=== PATIENT | female | born 1940 | race Caucasian/White ===

== ENCOUNTER 2023-06-25 12:48 | Inpatient (IN) ==
[2023-06-25] MEDS ORDERED: IOPAMIDOL 100 ML BOTTLE IV ONE (12:49)
[2023-06-25 14:52] LABS: Basophils # (Auto) 0.02 K/mcL (0.00-0.30); Basophils % (Auto) 0.2 % (0.0-2.0); Eosinophils # (Auto) 0.01 K/mcL (0.00-0.70); Eosinophils % (Auto) 0.1 % (0.0-7.0); Hematocrit 42.6 % (34.1-44.9); Hemoglobin 13.5 g/dL (11.2-15.7); Lymphocytes # (Auto) 0.58 K/mcL (1.50-4.80); Lymphocytes % (Auto) 6.3 % (15.5-49.0); Mean Cell Volume 93.2 fL (80.0-100.0); Mean Corpuscular HGB Conc 31.7 g/dL (31.0-36.0); Mean Platelet Volume 10.7 fL (8.8-12.5); Monocytes # (Auto) 0.37 K/mcL (0.10-0.90); Platelet Count 213 K/mcL (140-440); RBC 4.57 M/mcL (3.59-5.38); Red Cell Distribution Width 12.9 % (11.5-14.5); WBC 9.2 K/mcL (4.5-11.0)
[2023-06-25 15:05] LABS: ALT/SGPT 11 U/L (<40); AST/SGOT 34 U/L (<32); Albumin 3.9 gm/dL (3.2-5.2); Albumin/Globulin Ratio 1.4 (1.0-2.3); Alkaline Phosphatase 76 U/L (39-117); Bilirubin,Total 1.4 mg/dL (0.1-1.0); Blood Urea Nitrogen 40 mg/dL (8-23); Calcium 8.8 mg/dL (8.6-10.4); Carbon Dioxide 25 mmol/L (22-30); Chloride 96 mmol/L (96-108); Globulin 2.7 gm/dL (2.2-3.7); Glomerular Filtration Rate 46; Glucose 154 mg/dL (70-105)
[2023-06-25] MEDS: LACTATED RINGERS 1,000 ML IV ONE (15:46)
[2023-06-25] MEDS: PIPERACILLIN SODIUM/TAZOBACTAM 3.375 GM in DEXTROSE 5% IN WATER 50 ML IV ONE (17:41)
[2023-06-25] MEDS ORDERED: DEXTROSE 31 GM ORAL.SUSP PO PRN (22:38)
[2023-06-25] MEDS ORDERED: DEXTROSE 50% 50 ML VIAL IV PRN (22:38)
[2023-06-25] MEDS: 0.9 % SODIUM CHLORIDE 10 ML SYRINGE IV SCH (23:32)
[2023-06-25] MEDS: INSULIN LISPRO 1 UNIT/0.01 ML UNIT SQ SCH (23:32)
[2023-06-25] MEDS: PANTOPRAZOLE 40 MG VIAL IV SCH (23:44)
[2023-06-25] MEDS: PANTOPRAZOLE 40 MG VIAL IV ONE (23:52)
[2023-06-25] MEDS: LOPERAMIDE 2 MG CAPSULE PO PRN (23:52)
[2023-06-25] MEDS: LOPERAMIDE 2 MG CAPSULE PO ONE (23:56)
[2023-06-26] MEDS: LOPERAMIDE 2 MG CAPSULE PO ONE (00:01)
[2023-06-26] MEDS: PIPERACILLIN SODIUM/TAZOBACTAM 3.375 GM in DEXTROSE 5% IN WATER 100 ML IV SCH ×2 (03:21→14:26)
[2023-06-26 07:19] LABS: Basophils # (Auto) 0.02 K/mcL (0.00-0.30); Basophils % (Auto) 0.3 % (0.0-2.0); Eosinophils # (Auto) 0.05 K/mcL (0.00-0.70); Eosinophils % (Auto) 0.6 % (0.0-7.0); Hematocrit 38.8 % (34.1-44.9); Lymphocytes # (Auto) 1.64 K/mcL (1.50-4.80); Lymphocytes % (Auto) 21.1 % (15.5-49.0); Mean Cell Volume 95.6 fL (80.0-100.0); Mean Corpuscular HGB Conc 30.9 g/dL (31.0-36.0); Mean Platelet Volume 10.8 fL (8.8-12.5); Monocytes # (Auto) 0.63 K/mcL (0.10-0.90); Monocytes % (Auto) 8.1 % (1.0-12.0); Neutrophils % (Auto) 69.5 % (38.0-78.0); Platelet Count 189 K/mcL (140-440); RBC 4.06 M/mcL (3.59-5.38); Red Cell Distribution Width 13.1 % (11.5-14.5); WBC 7.8 K/mcL (4.5-11.0)
[2023-06-26 07:34] LABS: ALT/SGPT 10 U/L (<40); AST/SGOT 30 U/L (<32); Albumin 3.3 gm/dL (3.2-5.2); Albumin/Globulin Ratio 1.4 (1.0-2.3); Alkaline Phosphatase 63 U/L (39-117); Blood Urea Nitrogen 34 mg/dL (8-23); Calcium 8.3 mg/dL (8.6-10.4); Carbon Dioxide 26 mmol/L (22-30); Chloride 98 mmol/L (96-108); Globulin 2.4 gm/dL (2.2-3.7); Glomerular Filtration Rate 41; Glucose 127 mg/dL (70-105)
[2023-06-26] MEDS: LACTATED RINGERS 1,000 ML IV SCH (09:29)
[2023-06-26] MEDS: POTASSIUM CHLORIDE 20 MEQ/15 ML ML PO SCH (09:29)
[2023-06-27] MEDS: ONDANSETRON 4 MG/2 ML VIAL IV PRN (07:24)
[2023-06-27 07:33] LABS: Blood Urea Nitrogen 23 mg/dL (8-23); Calcium 8.8 mg/dL (8.6-10.4); Carbon Dioxide 28 mmol/L (22-30); Chloride 99 mmol/L (96-108); Glomerular Filtration Rate 38; Glucose 151 mg/dL (70-105); Phosphorous 3.1 mg/dL (2.5-4.5)
[2023-06-27] MEDS: 0.9 % SODIUM CHLORIDE 1,000 ML IV SCH (10:24)
[2023-06-27] MEDS: POTASSIUM CHLORIDE 40 MEQ in DEXTROSE 5% IN WATER 500 ML IV SCH (10:56)
[2023-06-27] MEDS: POTASSIUM CHLORIDE 20 MEQ TABLET PO SCH (11:37)
[2023-06-27] MEDS ORDERED: CARBOXYMETHYLCELLULOSE SODIUM 1 EACH DROPER.GEL OP PRN (14:30)
[2023-06-27] MEDS ORDERED: ACETAMINOPHEN 325 MG TABLET PO SCH (14:30)
[2023-06-27] MEDS ORDERED: LEVALBUTEROL TARTRATE INH PRN (14:31)
[2023-06-27] MEDS: ATORVASTATIN 10 MG TABLET PO SCH (21:23)
[2023-06-27] MEDS: HYDROmorphone 0.5 MG/0.5 ML SYRINGE IV PRN (21:51)
[2023-06-27] MEDS: METOCLOPRAMIDE 10 MG/2 ML VIAL IV PRN (21:52)
[2023-06-28 06:28] LABS: Blood Urea Nitrogen 16 mg/dL (8-23); Carbon Dioxide 21 mmol/L (22-30); Glomerular Filtration Rate 34
[2023-06-28 07:09] LABS: Albumin 3.3 gm/dL (3.2-5.2); Calcium 8.8 mg/dL (8.6-10.4); Chloride 104 mmol/L (96-108); Glucose 172 mg/dL (70-105); Phosphorous 3.7 mg/dL (2.5-4.5)
[2023-06-28 08:13] LABS: Basophils # (Auto) 0.06 K/mcL (0.00-0.30); Basophils % (Auto) 0.5 % (0.0-2.0); Eosinophils % (Auto) 0.8 % (0.0-7.0); Hematocrit 47.4 % (34.1-44.9); Hemoglobin 14.9 g/dL (11.2-15.7); Lymphocytes # (Auto) 1.63 K/mcL (1.50-4.80); Lymphocytes % (Auto) 13.4 % (15.5-49.0); Mean Cell Volume 93.7 fL (80.0-100.0); Mean Corpuscular HGB Conc 31.4 g/dL (31.0-36.0); Mean Platelet Volume 11.7 fL (8.8-12.5); Monocytes # (Auto) 0.44 K/mcL (0.10-0.90); Monocytes % (Auto) 3.6 % (1.0-12.0); Neutrophils % (Auto) 80.8 % (38.0-78.0); Platelet Count 160 K/mcL (140-440); RBC 5.06 M/mcL (3.59-5.38); Red Cell Distribution Width 13.5 % (11.5-14.5); WBC 12.2 K/mcL (4.5-11.0)
[2023-06-28] MEDS: ESCITALOPRAM 20 MG TABLET PO SCH (08:29)
[2023-06-28] MEDS: ESTRADIOL 1 MG TABLET PO SCH (08:29)
[2023-06-28] MEDS: MOMETASONE NAS SPRAY 1 SPRAY BOTTLE NAS SCH (08:34)
[2023-06-28] MEDS: Fluticasone Furoate-Vilanterol [Breo Ellipta] 100 INH SCH (08:34)
[2023-06-29 06:01] LABS: Hematocrit 42.1 % (34.1-44.9); Hemoglobin 12.8 g/dL (11.2-15.7); Mean Cell Volume 95.7 fL (80.0-100.0); Mean Corpuscular HGB Conc 30.4 g/dL (31.0-36.0); Platelet Count 216 K/mcL (140-440); Red Cell Distribution Width 13.4 % (11.5-14.5); WBC 11.2 K/mcL (4.5-11.0)
[2023-06-29 06:16] LABS: Blood Urea Nitrogen 15 mg/dL (8-23); Calcium 8.1 mg/dL (8.6-10.4); Carbon Dioxide 22 mmol/L (22-30); Chloride 106 mmol/L (96-108); Glomerular Filtration Rate 38; Glucose 149 mg/dL (70-105)
[2023-06-29] MEDS: ENOXAPARIN 40 MG/0.4 ML SYRINGE SQ SCH (08:51)
[2023-06-30] MEDS: ACETAMINOPHEN 1,000 MG/100 ML BAG IV PRN (01:12)
[2023-06-30 08:13] LABS: Appearance,Urine Clear (Clear); Bacteria,Urine Rare /hpf (0); Bilirubin,Urine Small mg/dL (Negative); Color,Urine Yellow; Culture Indicated,Urine No; Glucose,Urine (UA) Negative (Negative); Ketones,Urine 15 mg/dL (Negative); Leukocyte Esterase,Urine Trace /uL (Negative); Nitrate,Urine Negative (Negative); PH,Urine 5.5 (5.0-9.0); Protein,Urine 30 mg/dL (Negative); Specific Gravity,Urine >= 1.030 (1.000-1.035); Urine Blood Negative ery/mcL (Negative); Urine RBC 1 /hpf (0-3); Urine Squamous Epithelial Cell 5 /hpf (0-4); Urine WBC 6 /hpf (0-4); Urobilinogen,Urine Normal
[2023-06-30] MEDS ORDERED: IOPAMIDOL 100 ML BOTTLE IV ONE (09:15)
[2023-06-30] MEDS: METOCLOPRAMIDE 10 MG/2 ML VIAL IV SCH (13:57)
[2023-06-30] MEDS: amLODIPine 5 MG TABLET PO SCH (16:06)
[2023-07-01 06:28] LABS: Erythrocyte Sedimentation Rate 7 mm/hr (0-30)
[2023-07-01 06:30] LABS: Basophils # (Auto) 0.04 K/mcL (0.00-0.30); Basophils % (Auto) 0.4 % (0.0-2.0); Eosinophils # (Auto) 0.44 K/mcL (0.00-0.70); Eosinophils % (Auto) 4.9 % (0.0-7.0); Hematocrit 41.2 % (34.1-44.9); Hemoglobin 12.8 g/dL (11.2-15.7); Lymphocytes # (Auto) 0.91 K/mcL (1.50-4.80); Lymphocytes % (Auto) 10.2 % (15.5-49.0); Mean Cell Volume 93.8 fL (80.0-100.0); Mean Corpuscular HGB Conc 31.1 g/dL (31.0-36.0); Monocytes # (Auto) 0.42 K/mcL (0.10-0.90); Monocytes % (Auto) 4.7 % (1.0-12.0); Neutrophils % (Auto) 79.6 % (38.0-78.0); Platelet Count 213 K/mcL (140-440); RBC 4.39 M/mcL (3.59-5.38); Red Cell Distribution Width 13.4 % (11.5-14.5)
[2023-07-01 07:18] LABS: ALT/SGPT 14 U/L (<40); AST/SGOT 34 U/L (<32); Albumin/Globulin Ratio 1.2 (1.0-2.3); Alkaline Phosphatase 56 U/L (39-117); Bilirubin,Direct 0.2 mg/dL (<0.3); Bilirubin,Total 0.5 mg/dL (0.1-1.0); Blood Urea Nitrogen 14 mg/dL (8-23); Carbon Dioxide 20 mmol/L (22-30); Chloride 106 mmol/L (96-108); Globulin 2.5 gm/dL (2.2-3.7); Glomerular Filtration Rate 46; Glucose 90 mg/dL (70-105); Lactate Dehydrogenase 219 U/L (135-225); Phosphorous 2.7 mg/dL (2.5-4.5); Triglycerides 104 mg/dL (<150); Uric Acid 4.2 mg/dL (2.5-8.0)
[2023-07-01] MEDS: POTASSIUM CHLORIDE 40 MEQ in DEXTROSE 5% IN WATER 500 ML IV ONE (09:32)
[2023-07-01] MEDS ORDERED: DIATRIZOATE MEGLU/DIATRIZO SOD 120ML BOTTLE PO ONE (11:44)
[2023-07-01] MEDS ORDERED: ENALAPRILAT 1.25 MG/ML VIAL IV PRN (16:09)
[2023-07-01] MEDS: PYRIDOSTIGMINE BROMIDE 10 MG/2 ML AMPUL IV SCH (17:51)
[2023-07-01] MEDS: METOCLOPRAMIDE 10 MG/2 ML VIAL IV SCH (17:54)
[2023-07-02 07:40] LABS: ALT/SGPT 16 U/L (<40); AST/SGOT 35 U/L (<32); Albumin 3.4 gm/dL (3.2-5.2); Albumin/Globulin Ratio 1.2 (1.0-2.3); Alkaline Phosphatase 61 U/L (39-117); Bilirubin,Direct < 0.2 mg/dL (0-0.3); Bilirubin,Total 0.4 mg/dL (0.1-1.0); Blood Urea Nitrogen 12 mg/dL (8-23); Calcium 8.4 mg/dL (8.6-10.4); Carbon Dioxide 17 mmol/L (22-30); Chloride 106 mmol/L (96-108); Globulin 2.8 gm/dL (2.2-3.7); Glomerular Filtration Rate 46; Glucose 149 mg/dL (70-105); Lactate Dehydrogenase 251 U/L (135-225); Phosphorous 2.6 mg/dL (2.5-4.5); Triglycerides 119 mg/dL (<150); Uric Acid 3.6 mg/dL (2.5-8.0)
[2023-07-02] MEDS: HEPARIN 5,000 UNIT/ML VIAL SQ SCH (09:24)
[2023-07-02] MEDS: DEXTROSE 5%-1/2NS W/10MEQ KCL 1,000 ML IV SCH (11:28)
[2023-07-02] MEDS: VILANTEROL INH SCH (13:51)
[2023-07-02] MEDS: FLUTICASONE INH SCH (13:51)
[2023-07-02] MEDS: UMECLIDINIUM INH SCH (13:51)
[2023-07-02] MEDS: POTASSIUM CHLORIDE 20 MEQ/10 ML VIAL IV ONE (20:33)
[2023-07-02] MEDS: POTASSIUM CHLORIDE 40 MEQ in DEXTROSE 5% IN WATER 500 ML IV ONE (20:42)
[2023-07-03 06:53] LABS: Basophils # (Auto) 0.04 K/mcL (0.00-0.30); Basophils % (Auto) 0.4 % (0.0-2.0); Eosinophils # (Auto) 0.19 K/mcL (0.00-0.70); Eosinophils % (Auto) 1.8 % (0.0-7.0); Hematocrit 42.1 % (34.1-44.9); Hemoglobin 12.3 g/dL (11.2-15.7); Lymphocytes # (Auto) 0.81 K/mcL (1.50-4.80); Lymphocytes % (Auto) 7.7 % (15.5-49.0); Mean Cell Volume 100.2 fL (80.0-100.0); Mean Corpuscular HGB Conc 29.2 g/dL (31.0-36.0); Monocytes # (Auto) 0.49 K/mcL (0.10-0.90); Monocytes % (Auto) 4.7 % (1.0-12.0); Neutrophils % (Auto) 85.1 % (38.0-78.0); Platelet Count 194 K/mcL (140-440); Red Cell Distribution Width 13.9 % (11.5-14.5); WBC 10.5 K/mcL (4.5-11.0)
[2023-07-03 07:20] LABS: Blood Urea Nitrogen 9 mg/dL (8-23); Carbon Dioxide 16 mmol/L (22-30); Chloride 110 mmol/L (96-108); Glomerular Filtration Rate 41; Glucose 166 mg/dL (70-105)
[2023-07-03] MEDS: SODIUM BICARBONATE VIAL 150 MEQ in WATER FOR INJECTION,STERILE 850 ML IV ONE (08:57)
[2023-07-03] MEDS: LOSARTAN 25 MG TABLET PO SCH (08:58)
[2023-07-03 10:05] LABS: Albumin 3.1 gm/dL (3.2-5.2)
[2023-07-03] MEDS: ALBUMIN HUMAN 12.5 GM/50 ML VIAL IV ONE (10:29)
[2023-07-03] MEDS: FUROSEMIDE 40 MG/4 ML VIAL IV ONE (11:00)
[2023-07-03] MEDS ORDERED: IOPAMIDOL 100 ML BOTTLE IV ONE (15:58)
[2023-07-04 06:26] LABS: Basophils # (Auto) 0.03 K/mcL (0.00-0.30); Basophils % (Auto) 0.1 % (0.0-2.0); Eosinophils # (Auto) 0.09 K/mcL (0.00-0.70); Eosinophils % (Auto) 0.3 % (0.0-7.0); Hematocrit 36.3 % (34.1-44.9); Hemoglobin 11.4 g/dL (11.2-15.7); Lymphocytes # (Auto) 1.07 K/mcL (1.50-4.80); Lymphocytes % (Auto) 3.7 % (15.5-49.0); Mean Cell Volume 93.6 fL (80.0-100.0); Mean Corpuscular HGB Conc 31.4 g/dL (31.0-36.0); Mean Platelet Volume 11.3 fL (8.8-12.5); Monocytes # (Auto) 0.88 K/mcL (0.10-0.90); Monocytes % (Auto) 3.1 % (1.0-12.0); Platelet Count 183 K/mcL (140-440); RBC 3.88 M/mcL (3.59-5.38); WBC 28.8 K/mcL (4.5-11.0)
[2023-07-04 06:42] LABS: ALT/SGPT 13 U/L (<40); AST/SGOT 27 U/L (<32); Albumin 2.9 gm/dL (3.2-5.2); Albumin/Globulin Ratio 1.3 (1.0-2.3); Alkaline Phosphatase 52 U/L (39-117); Bilirubin,Direct < 0.2 mg/dL (0-0.3); Bilirubin,Total 0.5 mg/dL (0.1-1.0); Blood Urea Nitrogen 7 mg/dL (8-23); Calcium 8.1 mg/dL (8.6-10.4); Carbon Dioxide 24 mmol/L (22-30); Chloride 104 mmol/L (96-108); Globulin 2.3 gm/dL (2.2-3.7); Glomerular Filtration Rate 41; Glucose 134 mg/dL (70-105); Lactate Dehydrogenase 221 U/L (135-225); Phosphorous 2.1 mg/dL (2.5-4.5); Triglycerides 71 mg/dL (<150); Uric Acid 3.9 mg/dL (2.5-8.0)
[2023-07-04] MEDS ORDERED: MOMETASONE NAS SPRAY 1 SPRAY BOTTLE NAS PRN (08:02)
[2023-07-04] MEDS: POTASSIUM CHLORIDE 40 MEQ in DEXTROSE 5% IN WATER 500 ML IV ONE (08:36)
[2023-07-04] MEDS: MAGNESIUM SULFATE 4 GM/100 ML BAG IV ONE (08:55)
[2023-07-04] MEDS ORDERED: ROCURONIUM 10 MG/ML ML IV ONE ×3 (09:26→12:40)
[2023-07-04] MEDS ORDERED: PROPOFOL 200 MG/20 ML VIAL IV ONE (09:26)
[2023-07-04] MEDS ORDERED: fentaNYL 100 MCG/2 ML VIAL ONE (09:27)
[2023-07-04] MEDS ORDERED: PHENYLephrine 1 MG/10 ML SYRINGE (ANEST) ONE (10:42)
[2023-07-04] MEDS ORDERED: SUGAMMADEX SODIUM 200 MG/2 ML VIAL IV ONE (12:47)
[2023-07-04] MEDS ORDERED: fentaNYL 100 MCG/2 ML VIAL IV PRN ×2 (12:53→16:20)
[2023-07-04] MEDS ORDERED: ONDANSETRON 4 MG/2 ML VIAL IV PRN (12:53)
[2023-07-04] MEDS ORDERED: IPRATROPIUM/ALBUTEROL 3 ML AMPUL.NEB NEB PRN (12:53)
[2023-07-04] MEDS ORDERED: HYDROmorphone 0.5 MG/0.5 ML SYRINGE IV PRN (12:53)
[2023-07-04] MEDS ORDERED: NALOXONE HCL 0.4 MG/ML VIAL IV PRN ×2 (12:53→20:25)
[2023-07-04] MEDS ORDERED: HYDROmorphone 1 MG/ML SYRINGE ONE (13:27)
[2023-07-04] MEDS: HYDROmorphone 1 MG/ML SYRINGE IV PRN (15:18)
[2023-07-04] MEDS: NALOXONE HCL 0.4 MG/ML VIAL IV ONE ×2 (16:11→17:56)
[2023-07-04] MEDS: NALOXONE HCL 0.4 MG/ML VIAL ONE (16:24)
[2023-07-04] MEDS: DEXTROSE 5%-1/2NS W/10MEQ KCL 1,000 ML IV SCH (20:36)
[2023-07-04] MEDS: 0.9 % SODIUM CHLORIDE 500 ML IV ONE (21:03)
[2023-07-04] MEDS: IPRATROPIUM/ALBUTEROL 3 ML AMPUL.NEB NEB SCH (21:08)
[2023-07-04] MEDS: ALBUMIN HUMAN 12.5 GM/50 ML VIAL IV ONE (23:28)
[2023-07-04] MEDS: 0.9 % SODIUM CHLORIDE 10 ML SYRINGE IV SCH (23:29)
[2023-07-04] MEDS: ALBUMIN HUMAN 50 ML IV ONE (23:30)
[2023-07-05] MEDS ORDERED: 0.9 % SODIUM CHLORIDE 250 ML IV SCH (02:15)
[2023-07-05] MEDS: NOREPINEPHRINE BITARTRATE 4 MG/4 ML VIAL IV ONE (02:26)
[2023-07-05] MEDS: NOREPINEPHRINE BITARTRATE 8 MG in 0.9 % SODIUM CHLORIDE 242 ML IV SCH (02:27)
[2023-07-05] MEDS: 0.9 % SODIUM CHLORIDE 250 ML IV SCH (02:28)
[2023-07-05 05:52] LABS: Basophils # (Auto) 0.01 K/mcL (0.00-0.30); Basophils % (Auto) 0 % (0.0-2.0); Eosinophils # (Auto) 0.05 K/mcL (0.00-0.70); Eosinophils % (Auto) 0.2 % (0.0-7.0); Hematocrit 39.1 % (34.1-44.9); Hemoglobin 11.9 g/dL (11.2-15.7); Lymphocytes # (Auto) 1.39 K/mcL (1.50-4.80); Lymphocytes % (Auto) 4.5 % (15.5-49.0); Mean Cell Volume 98.2 fL (80.0-100.0); Mean Corpuscular HGB Conc 30.4 g/dL (31.0-36.0); Mean Platelet Volume 10.9 fL (8.8-12.5); Monocytes # (Auto) 1.16 K/mcL (0.10-0.90); Monocytes % (Auto) 3.7 % (1.0-12.0); Neutrophils % (Auto) 90.6 % (38.0-78.0); Platelet Count 243 K/mcL (140-440); RBC 3.98 M/mcL (3.59-5.38); Red Cell Distribution Width 14.6 % (11.5-14.5); WBC 31.1 K/mcL (4.5-11.0)
[2023-07-05 06:02] LABS: ALT/SGPT 21 U/L (<40); AST/SGOT 37 U/L (<32); Albumin 2.9 gm/dL (3.2-5.2); Albumin/Globulin Ratio 1.2 (1.0-2.3); Alkaline Phosphatase 59 U/L (39-117); Bilirubin,Direct < 0.2 mg/dL (0-0.3); Bilirubin,Total 0.4 mg/dL (0.1-1.0); Blood Urea Nitrogen 13 mg/dL (8-23); Calcium 7.8 mg/dL (8.6-10.4); Carbon Dioxide 23 mmol/L (22-30); Chloride 104 mmol/L (96-108); Globulin 2.5 gm/dL (2.2-3.7); Glomerular Filtration Rate 27; Glucose 199 mg/dL (70-105); Lactate Dehydrogenase 246 U/L (135-225); Phosphorous 3.2 mg/dL (2.5-4.5); Triglycerides 83 mg/dL (<150); Uric Acid 3.6 mg/dL (2.5-8.0)
[2023-07-05 08:09] LABS: Band Neutrophils % 1 % (0-10); Basophils % (Manual) 1 % (0-2); Hypochromasia 1+ (None Seen); Lymphocytes % 2 % (15-49); Monocytes % (Manual) 6 % (1-12); Platelet Estimate NORMAL (Normal); RBC Morphology ABNORMAL (Normal); Reactive Lymphocytes 1 % (0-2); Segmented Neutrophils % 89 % (38-78)
[2023-07-05] MEDS: ALBUMIN HUMAN 25 GM/100 ML BAG IV SCH (08:20)
[2023-07-05] MEDS: LACTATED RINGERS 250 ML IV ONE (09:33)
[2023-07-05] MEDS: TPN PER PHARMACY IV SCH (15:53)
[2023-07-05] MEDS: CALCIUM GLUCONATE IV SCH (15:57)
[2023-07-05] MEDS: [UNRECOGNIZED DRUG - OTHER] IV SCH (15:57)
[2023-07-05] MEDS: SODIUM CHLORIDE IV SCH (15:57)
[2023-07-05] MEDS: MAGNESIUM SULFATE IV SCH (15:57)
[2023-07-05] MEDS ORDERED: POTASSIUM CHLORIDE 20 MEQ TABLET PO PRN ×2 (17:19→17:21)
[2023-07-05] MEDS ORDERED: POTASSIUM CHLORIDE 40 MEQ in DEXTROSE 5% IN WATER 500 ML IV PRN (17:22)
[2023-07-05] MEDS ORDERED: MAGNESIUM SULFATE 2 GM/50 ML BAG IV PRN (17:24)
[2023-07-05] MEDS: FAT EMULSION 20% 250 ML IV SCH (17:47)
[2023-07-05] MEDS ORDERED: DEXTROSE 50% 50 ML VIAL IV PRN (19:00)
[2023-07-05] MEDS ORDERED: DEXTROSE 31 GM ORAL.SUSP PO PRN (19:00)
[2023-07-06] MEDS ORDERED: INSULIN LISPRO 1 UNIT/0.01 ML UNIT SQ SCH
[2023-07-06] MEDS ORDERED: DEXTROSE 50% 50 ML VIAL IV PRN
[2023-07-06] MEDS ORDERED: DEXTROSE 31 GM ORAL.SUSP PO PRN ×2 (01:11)
[2023-07-06] MEDS: INSULIN LISPRO 1 UNIT/0.01 ML UNIT SQ PRN (01:54)
[2023-07-06] MEDS: INSULIN LISPRO 1 UNIT/0.01 ML UNIT SQ ONE ×2 (02:29→06:48)
[2023-07-06] MEDS: PANTOPRAZOLE 40 MG VIAL IV SCH (06:59)
[2023-07-06 09:50] LABS: Basophils # (Auto) 0.03 K/mcL (0.00-0.30); Basophils % (Auto) 0.2 % (0.0-2.0); Eosinophils # (Auto) 0.46 K/mcL (0.00-0.70); Eosinophils % (Auto) 3.3 % (0.0-7.0); Hematocrit 30.4 % (34.1-44.9); Hemoglobin 9.3 g/dL (11.2-15.7); Lymphocytes # (Auto) 0.72 K/mcL (1.50-4.80); Lymphocytes % (Auto) 5.2 % (15.5-49.0); Mean Cell Volume 95.6 fL (80.0-100.0); Mean Corpuscular HGB Conc 30.6 g/dL (31.0-36.0); Mean Platelet Volume 11.6 fL (8.8-12.5); Monocytes # (Auto) 0.61 K/mcL (0.10-0.90); Monocytes % (Auto) 4.4 % (1.0-12.0); Neutrophils % (Auto) 86.5 % (38.0-78.0); Platelet Count 175 K/mcL (140-440); RBC 3.18 M/mcL (3.59-5.38); Red Cell Distribution Width 14.6 % (11.5-14.5); WBC 13.9 K/mcL (4.5-11.0)
[2023-07-06] MEDS: POTASSIUM PHOSPHATE 40 MEQ in DEXTROSE 5% IN WATER 500 ML IV SCH (10:31)
[2023-07-06 10:32] LABS: ALT/SGPT 16 U/L (<40); AST/SGOT 24 U/L (<32); Albumin 3.6 gm/dL (3.2-5.2); Alkaline Phosphatase 46 U/L (39-117); Anion Gap 8.6 (8.0-16.0); Bilirubin,Direct < 0.2 mg/dL (0-0.3); Bilirubin,Total 0.4 mg/dL (0.1-1.0); Blood Urea Nitrogen 12 mg/dL (8-23); Calcium 7.9 mg/dL (8.6-10.4); Carbon Dioxide 23 mmol/L (22-30); Chloride 105 mmol/L (96-108); Globulin 1.8 gm/dL (2.2-3.7); Glomerular Filtration Rate 31; Glucose 188 mg/dL (70-105); Lactate Dehydrogenase 186 U/L (135-225); Phosphorous 1.6 mg/dL (2.5-4.5); Triglycerides 77 mg/dL (<150); Uric Acid 3.4 mg/dL (2.5-8.0)
[2023-07-06] MEDS: SODIUM CHLORIDE IV SCH (15:55)
[2023-07-06] MEDS: [UNRECOGNIZED DRUG - OTHER] IV SCH (15:55)
[2023-07-06] MEDS: MAGNESIUM SULFATE IV SCH (15:55)
[2023-07-06] MEDS: CALCIUM GLUCONATE IV SCH (15:55)
[2023-07-06] MEDS: hydrALAZINE 20 MG/ML VIAL IV PRN (21:28)
[2023-07-07 06:20] LABS: Basophils # (Auto) 0.01 K/mcL (0.00-0.30); Basophils % (Auto) 0.1 % (0.0-2.0); Eosinophils % (Auto) 3.1 % (0.0-7.0); Hematocrit 32.3 % (34.1-44.9); Hemoglobin 9.9 g/dL (11.2-15.7); Lymphocytes # (Auto) 0.82 K/mcL (1.50-4.80); Lymphocytes % (Auto) 8.6 % (15.5-49.0); Mean Cell Volume 96.4 fL (80.0-100.0); Mean Corpuscular HGB Conc 30.7 g/dL (31.0-36.0); Mean Platelet Volume 11.3 fL (8.8-12.5); Monocytes # (Auto) 0.48 K/mcL (0.10-0.90); Neutrophils % (Auto) 82.8 % (38.0-78.0); Platelet Count 187 K/mcL (140-440); RBC 3.35 M/mcL (3.59-5.38); Red Cell Distribution Width 14.8 % (11.5-14.5); WBC 9.6 K/mcL (4.5-11.0)
[2023-07-07 07:01] LABS: Phosphorous 3.3 mg/dL (2.5-4.5)
[2023-07-07 08:10] LABS: ALT/SGPT 15 U/L (<40); AST/SGOT 20 U/L (<32); Albumin 3.5 gm/dL (3.2-5.2); Albumin/Globulin Ratio 1.8 (1.0-2.3); Alkaline Phosphatase 48 U/L (39-117); Bilirubin,Total 0.5 mg/dL (0.1-1.0); Blood Urea Nitrogen 11 mg/dL (8-23); Calcium 8.3 mg/dL (8.6-10.4); Carbon Dioxide 22 mmol/L (22-30); Chloride 107 mmol/L (96-108); Glomerular Filtration Rate 46; Glucose 280 mg/dL (70-105)
[2023-07-07] MEDS ORDERED: DEXTROSE 50% 50 ML SYRINGE IV PRN (10:45)
[2023-07-07] MEDS: POTASSIUM CHLORIDE 20 MEQ in DEXTROSE 5% IN WATER 250 ML IV ONE (12:04)
[2023-07-07] MEDS: INSULIN LISPRO 1 UNIT/0.01 ML UNIT SQ SCH (13:00)
[2023-07-07] MEDS: CALCIUM GLUCONATE IV SCH (15:22)
[2023-07-07] MEDS: SODIUM CHLORIDE IV SCH (15:22)
[2023-07-07] MEDS: [UNRECOGNIZED DRUG - OTHER] IV SCH (15:22)
[2023-07-07] MEDS: MAGNESIUM SULFATE IV SCH (15:22)
[2023-07-07] MEDS: ACETAMINOPHEN 325 MG TABLET PO PRN (18:05)
[2023-07-08 06:46] LABS: Basophils # (Auto) 0.05 K/mcL (0.00-0.30); Basophils % (Auto) 0.4 % (0.0-2.0); Eosinophils # (Auto) 0.36 K/mcL (0.00-0.70); Eosinophils % (Auto) 3.2 % (0.0-7.0); Hematocrit 33.7 % (34.1-44.9); Hemoglobin 10.5 g/dL (11.2-15.7); Lymphocytes # (Auto) 0.82 K/mcL (1.50-4.80); Lymphocytes % (Auto) 7.3 % (15.5-49.0); Mean Cell Volume 93.6 fL (80.0-100.0); Mean Corpuscular HGB Conc 31.2 g/dL (31.0-36.0); Mean Platelet Volume 11.3 fL (8.8-12.5); Monocytes # (Auto) 0.62 K/mcL (0.10-0.90); Monocytes % (Auto) 5.6 % (1.0-12.0); Neutrophils % (Auto) 82.7 % (38.0-78.0); Platelet Count 224 K/mcL (140-440); Red Cell Distribution Width 14.7 % (11.5-14.5); WBC 11.2 K/mcL (4.5-11.0)
[2023-07-08 07:22] LABS: ALT/SGPT 16 U/L (<40); AST/SGOT 19 U/L (<32); Albumin 3.3 gm/dL (3.2-5.2); Albumin/Globulin Ratio 1.4 (1.0-2.3); Alkaline Phosphatase 51 U/L (39-117); Bilirubin,Total 0.4 mg/dL (0.1-1.0); Blood Urea Nitrogen 14 mg/dL (8-23); Calcium 8.6 mg/dL (8.6-10.4); Carbon Dioxide 21 mmol/L (22-30); Chloride 104 mmol/L (96-108); Globulin 2.3 gm/dL (2.2-3.7); Glomerular Filtration Rate 46; Glucose 352 mg/dL (70-105)
[2023-07-08] MEDS: CALCIUM GLUCONATE 10 MEQ, MAGNESIUM SULFATE 16.24 MEQ, SODIUM CHLORIDE 80 MEQ, POTASSIU... IV SCH (15:05)
[2023-07-09 05:56] LABS: Basophils # (Auto) 0.04 K/mcL (0.00-0.30); Basophils % (Auto) 0.4 % (0.0-2.0); Eosinophils # (Auto) 0.49 K/mcL (0.00-0.70); Eosinophils % (Auto) 5.1 % (0.0-7.0); Hematocrit 33.3 % (34.1-44.9); Hemoglobin 10.1 g/dL (11.2-15.7); Lymphocytes # (Auto) 1.02 K/mcL (1.50-4.80); Lymphocytes % (Auto) 10.7 % (15.5-49.0); Mean Cell Volume 96.5 fL (80.0-100.0); Mean Corpuscular HGB Conc 30.3 g/dL (31.0-36.0); Mean Platelet Volume 10.7 fL (8.8-12.5); Monocytes # (Auto) 0.53 K/mcL (0.10-0.90); Monocytes % (Auto) 5.6 % (1.0-12.0); Neutrophils % (Auto) 77.6 % (38.0-78.0); Platelet Count 212 K/mcL (140-440); RBC 3.45 M/mcL (3.59-5.38); Red Cell Distribution Width 14.9 % (11.5-14.5); WBC 9.5 K/mcL (4.5-11.0)
[2023-07-09 07:01] LABS: ALT/SGPT 13 U/L (<40); AST/SGOT 21 U/L (<32); Albumin 3.1 gm/dL (3.2-5.2); Albumin/Globulin Ratio 1.2 (1.0-2.3); Alkaline Phosphatase 58 U/L (39-117); Bilirubin,Total 0.3 mg/dL (0.1-1.0); Blood Urea Nitrogen 16 mg/dL (8-23); Calcium 8.7 mg/dL (8.6-10.4); Carbon Dioxide 22 mmol/L (22-30); Chloride 107 mmol/L (96-108); Globulin 2.5 gm/dL (2.2-3.7); Glomerular Filtration Rate 59; Glucose 267 mg/dL (70-105)
[2023-07-09] MEDS: INSULIN LISPRO 1 UNIT/0.01 ML UNIT SQ SCH (12:03)
[2023-07-09] MEDS: INSULIN LISPRO 1 UNIT/0.01 ML UNIT SQ ONE (23:58)
[2023-07-10 07:38] LABS: Basophils # (Auto) 0.05 K/mcL (0.00-0.30); Basophils % (Auto) 0.5 % (0.0-2.0); Eosinophils # (Auto) 0.78 K/mcL (0.00-0.70); Eosinophils % (Auto) 8.5 % (0.0-7.0); Hemoglobin 9.9 g/dL (11.2-15.7); Lymphocytes # (Auto) 0.97 K/mcL (1.50-4.80); Lymphocytes % (Auto) 10.6 % (15.5-49.0); Mean Cell Volume 94.7 fL (80.0-100.0); Mean Corpuscular HGB Conc 30.9 g/dL (31.0-36.0); Mean Platelet Volume 11.2 fL (8.8-12.5); Monocytes # (Auto) 0.55 K/mcL (0.10-0.90); Neutrophils % (Auto) 73.6 % (38.0-78.0); Platelet Count 211 K/mcL (140-440); RBC 3.38 M/mcL (3.59-5.38); Red Cell Distribution Width 14.9 % (11.5-14.5); WBC 9.1 K/mcL (4.5-11.0)
[2023-07-10 08:04] LABS: ALT/SGPT 20 U/L (<40); AST/SGOT 25 U/L (<32); Albumin/Globulin Ratio 1.3 (1.0-2.3); Alkaline Phosphatase 69 U/L (39-117); Bilirubin,Total 0.2 mg/dL (0.1-1.0); Blood Urea Nitrogen 17 mg/dL (8-23); Calcium 8.6 mg/dL (8.6-10.4); Carbon Dioxide 19 mmol/L (22-30); Chloride 108 mmol/L (96-108); Globulin 2.3 gm/dL (2.2-3.7); Glomerular Filtration Rate 68; Glucose 311 mg/dL (70-105); Phosphorous 3.1 mg/dL (2.5-4.5)
[2023-07-10] MEDS: CALCIUM GLUCONATE 10 MEQ, MAGNESIUM SULFATE 16.24 MEQ, SODIUM CHLORIDE 80 MEQ, POTASSIU... IV SCH (15:20)
[2023-07-11 05:50] LABS: Basophils # (Auto) 0.05 K/mcL (0.00-0.30); Basophils % (Auto) 0.6 % (0.0-2.0); Eosinophils # (Auto) 0.66 K/mcL (0.00-0.70); Eosinophils % (Auto) 7.5 % (0.0-7.0); Lymphocytes # (Auto) 1.03 K/mcL (1.50-4.80); Lymphocytes % (Auto) 11.7 % (15.5-49.0); Mean Cell Volume 95.9 fL (80.0-100.0); Mean Corpuscular HGB Conc 30.3 g/dL (31.0-36.0); Mean Platelet Volume 11.1 fL (8.8-12.5); Monocytes # (Auto) 0.52 K/mcL (0.10-0.90); Monocytes % (Auto) 5.9 % (1.0-12.0); Neutrophils % (Auto) 73.4 % (38.0-78.0); Platelet Count 226 K/mcL (140-440); RBC 3.44 M/mcL (3.59-5.38); Red Cell Distribution Width 14.5 % (11.5-14.5); WBC 8.8 K/mcL (4.5-11.0)
[2023-07-11 06:28] LABS: ALT/SGPT 30 U/L (<40); AST/SGOT 32 U/L (<32); Albumin 3.1 gm/dL (3.2-5.2); Albumin/Globulin Ratio 1.2 (1.0-2.3); Alkaline Phosphatase 82 U/L (39-117); Bilirubin,Total 0.3 mg/dL (0.1-1.0); Blood Urea Nitrogen 18 mg/dL (8-23); Calcium 8.5 mg/dL (8.6-10.4); Carbon Dioxide 19 mmol/L (22-30); Chloride 104 mmol/L (96-108); Globulin 2.6 gm/dL (2.2-3.7); Glomerular Filtration Rate 59; Glucose 319 mg/dL (70-105)
[2023-07-11] MEDS: CALCIUM GLUCONATE 10 MEQ, MAGNESIUM SULFATE 16.24 MEQ, SODIUM CHLORIDE 80 MEQ, POTASSIU... IV SCH (16:25)
[2023-07-12 06:01] LABS: Basophils # (Auto) 0.06 K/mcL (0.00-0.30); Basophils % (Auto) 0.6 % (0.0-2.0); Eosinophils % (Auto) 5.1 % (0.0-7.0); Hematocrit 33.5 % (34.1-44.9); Hemoglobin 9.8 g/dL (11.2-15.7); Lymphocytes % (Auto) 10.1 % (15.5-49.0); Mean Cell Volume 98.8 fL (80.0-100.0); Mean Corpuscular HGB Conc 29.3 g/dL (31.0-36.0); Monocytes # (Auto) 0.52 K/mcL (0.10-0.90); Monocytes % (Auto) 5.3 % (1.0-12.0); Neutrophils % (Auto) 78.1 % (38.0-78.0); Platelet Count 234 K/mcL (140-440); RBC 3.39 M/mcL (3.59-5.38); Red Cell Distribution Width 14.6 % (11.5-14.5); WBC 9.9 K/mcL (4.5-11.0)
[2023-07-13] MEDS: PANTOPRAZOLE 40 MG TABLET PO SCH (17:18)
[2023-07-14] MEDS: 0.9 % SODIUM CHLORIDE 10 ML SYRINGE IV PRN (20:10)
[2023-07-15 06:36] LABS: Basophils # (Auto) 0.04 K/mcL (0.00-0.30); Basophils % (Auto) 0.4 % (0.0-2.0); Eosinophils # (Auto) 0.44 K/mcL (0.00-0.70); Eosinophils % (Auto) 4.9 % (0.0-7.0); Hematocrit 29.7 % (34.1-44.9); Hemoglobin 9.2 g/dL (11.2-15.7); Lymphocytes # (Auto) 1.39 K/mcL (1.50-4.80); Lymphocytes % (Auto) 15.5 % (15.5-49.0); Mean Cell Volume 94.6 fL (80.0-100.0); Mean Platelet Volume 11.1 fL (8.8-12.5); Monocytes # (Auto) 0.54 K/mcL (0.10-0.90); Neutrophils % (Auto) 72.6 % (38.0-78.0); Platelet Count 277 K/mcL (140-440); RBC 3.14 M/mcL (3.59-5.38); Red Cell Distribution Width 14.3 % (11.5-14.5)
[2023-07-15 07:02] LABS: Erythrocyte Sedimentation Rate 38 mm/hr (0-30)
[2023-07-16] MEDS ORDERED: AMOXICILLIN/POTASSIUM CLAV 875 MG TABLET PO SCH (17:30)
== END 2023-07-16 13:07 | DRG 327 ==
LOC: ED 12:48 → MEDSUR 12:48 → ICU 07-04 20:23 → MEDSUR 07-06 12:15
PROVIDERS: ADMIT Internal Medicine; ATTEND Internal Medicine